=== PATIENT | female | born 1945 ===

== ENCOUNTER 2017-04-06 08:44 | Emergency (ER) | payer MEDICARE ==
[2017-04-06 08:44] VITALS: BMI 34.9
[2017-04-06 08:54] VITALS: O2SAT 99
[2017-04-06] MEDS ORDERED: Promethazine DM 12.5 mg-30 mg/10 ml Syrup PO ONE (10:00)
[2017-04-06] MEDS ORDERED: Promethazine 6.25 MG/5 ML CUP ONE (10:06)
--- NOTE | 2017-04-06 10:08 | ED PDOC ---
HPI: General Adult Time Seen by Provider: 04/06/17 09:05 Chief Complaint (Nursing): Cough, Cold, Congestion Chief Complaint (Provider): Cough, Cold, Congestion History Per: Patient History/Exam Limitations: no limitations Current Symptoms Are (Timing): Still Present Additional Complaint(s): 71 y/o female presents to the ED complaining of cough and congestion x 3 days. Denies any further medical complaints. PMD: Piotr Awad MD Past Medical History Reviewed: Historical Data, Nursing Documentation, Vital Signs Vital Signs: Last Vital Signs Temp 99.7 F H 04/06/17 08:54 Pulse 69 04/06/17 08:54 Resp BP 155/52 H 04/06/17 08:54 Pulse Ox 99 04/06/17 10:11 - Medical History PMH: Arthritis, HTN, Hypercholesterolemia - Surgical History Other surgeries: Tubal Ligation, Heel spur - Family History Family History: States: Unknown Family Hx - Social History Current smoker - smoking cessation education provided: No Alcohol: None Drugs: Denies - Home Medications Home Medications: Ambulatory Orders Medication Instructions Recorded Ciprofloxacin/Dexamethasone 4 drop BID #1 bottle 01/18/17 [Ciprodex 0.3%-0.1% 7.5 Ml] Levofloxacin [Levaquin] 500 mg PO DAILY #7 tablet 01/18/17 Metoclopramide HCl [Reglan] 5 mg PO TID PRN #10 tablet 01/18/17 Promethazine DM [Phenergan DM 10 ml PO TID PRN #120 ml 04/06/17 Syrup] - Allergies Allergies/Adverse Reactions: Allergies Allergy/AdvReac Type Severity Reaction Status Date / Time Penicillins Allergy Mild RASH Verified 01/18/17 10:58 Review of Systems ROS Statement: Except As Marked, All Systems Reviewed And Found Negative (As per HPI, otherwise negative) ENT: Positive for: Nose Congestion Respiratory: Positive for: Cough Physical Exam - Reviewed Nursing Documentation Reviewed: Yes Vital Signs Reviewed: Yes - Physical Exam Appears: Positive for: Well, Non-toxic, No Acute Distress Head Exam: Positive for: ATRAUMATIC, NORMAL INSPECTION, NORMOCEPHALIC Skin: Positive for: Normal Color, Warm, DRY Eye Exam: Positive for: EOMI, Normal appearance, PERRL ENT: Positive for: Normal ENT Inspection, Pharyngeal Erythema (mild pharyngeal erythema) Neck: Positive for: Normal, Painless ROM, Supple Cardiovascular/Chest: Positive for: Regular Rate, Rhythm. Negative for: Murmur Respiratory: Positive for: Normal Breath Sounds. Negative for: Accessory Muscle Use, Respiratory Distress Gastrointestinal/Abdominal: Positive for: Normal Exam Back: Positive for: Normal Inspection Extremity: Positive for: Normal ROM. Negative for: Deformity Neurologic/Psych: Positive for: Alert, Oriented (x3) - ECG O2 Sat by Pulse Oximetry: 99 (RA) Pulse Ox Interpretation: Normal - Radiology X-Ray: Viewed By Me X-Ray Interpretation: No Acute Disease Medical Decision Making Medical Decision Making: Time: 09:38 Plan: Chest x-ray Promethazine DM 10ml PO Influenza A B Scribe Attestation: Documented by Diane Hartman acting as a scribe for Adela Sullivan MD. Scribe Attestation: All medical record entries made by the Scribe were at my direction and personally dictated by me. I have reviewed the chart and agree that the record accurately reflects my personal performance of the history, physical exam, medical decision making, and the department course for this patient. I have also personally directed, reviewed, and agree with the discharge instructions and disposition. Disposition - Clinical Impression Clinical Impression: URI (upper respiratory infection) - Patient ED Disposition Is Patient to be Admitted: No Doctor Will See Patient In The: Office Counseled Patient/Family Regarding: Diagnosis, Need For Followup, Rx Given - Disposition Disposition: Routine/Home Disposition Time: 10:22 Condition: STABLE Prescriptions: Promethazine DM [Phenergan DM Syrup] 10 ml PO TID PRN #120 ml PRN Reason: Cough Instructions: Upper Respiratory Infection (ED) Forms: [email or web address] (Georgian) Print Language: EAST TIMORESE - POA Present On Arrival: None
[2017-04-06 10:33] VITALS: BP 135/81; PULSE 75; RESP 14; TEMP 98.2
--- NOTE | 2017-04-06 11:00 | RAD ---
HISTORY: coughx 2 days, chest tightness COMPARISON: Chest radiograph dated 05/19/2013. TECHNIQUE: Chest PA and lateral FINDINGS: LUNGS: No active pulmonary disease. PLEURA: No significant pleural effusion identified. No pneumothorax apparent. CARDIOVASCULAR: Atherosclerotic aortic calcifications. Cardiomediastinal silhouette within normal limits. OSSEOUS STRUCTURES: Unchanged. VISUALIZED UPPER ABDOMEN: Normal. OTHER FINDINGS: None. IMPRESSION: No active disease.
== END 2017-04-06 10:30 | disposition home or self-care (01) ==
LOC: H.ER 08:44
DX: J06.9 Acute upper respiratory infection, unspecified (principal); E78.00 Pure hypercholesterolemia, unspecified; I10 Essential (primary) hypertension; Z88.0 Allergy status to penicillin

== ENCOUNTER 2018-03-18 11:59 | Emergency (ER) | payer MEDICARE ==
[2018-03-18 11:59] VITALS: BMI 34.9
[2018-03-18 12:04] VITALS: O2SAT 99
[2018-03-18] MEDS ORDERED: Tdap Vaccine 0.5 ml Vial (10-64 yrs) IM ONE ×2 (12:20→12:34)
--- NOTE | 2018-03-18 13:02 | CT ---
Date of service: 03/18/2018 PROCEDURE: CT HEAD WITHOUT CONTRAST. HISTORY: trauma COMPARISON: 01/18/2017 TECHNIQUE: Axial computed tomography images were obtained through the head/brain without intravenous contrast. Radiation dose: Total exam DLP = 817.7 mGy-cm. This CT exam was performed using one or more of the following dose reduction techniques: Automated exposure control, adjustment of the mA and/or kV according to patient size, and/or use of iterative reconstruction technique. FINDINGS: HEMORRHAGE: No intracranial hemorrhage. BRAIN: No mass effect or edema. Cerebral atrophy and chronic appearing microvascular ischemic changes-similar VENTRICLES: Unremarkable. No hydrocephalus. CALVARIUM: Unremarkable. PARANASAL SINUSES: The prior left sphenoid sinus flat retention cyst and/or fluid level is much smaller in size on this exam. Tiny residual fluid level is favored. MASTOID AIR CELLS: Unremarkable as visualized. No inflammatory changes. OTHER FINDINGS: There is right frontal and periorbital scalp soft tissue swelling and hematoma suggested. IMPRESSION: Interval right frontal/periorbital scalp soft tissue swelling and hematoma suggested. No calvarial fracture. No intracranial hemorrhage or mass effect seen. Prior chronic cerebral atrophy and chronic appearing microvascular changes noted. Interval smaller left sphenoid sinus retention cyst and/or smaller air-fluid levels noted
--- NOTE | 2018-03-18 13:06 | ED PDOC ---
HPI: Trauma/Fall - HPI Time Seen by Provider: 03/18/18 12:17 Chief Complaint (Nursing): Trauma Chief Complaint (Provider): Trauma History Per: Patient History/Exam Limitations: no limitations Onset/Duration Of Symptoms: Mins (just prior to arrival) Injury Occurred (Timing): Just Before Arrival Location Of Injury: Right: Face, Wrist, Left: Neck Severity: Moderate Associated Symptoms: denies: LOC Additional Complaint(s): 72 year old female with a past medical history of hypertension and arthritis is brought into the ED by EMS status post fall that occurred just prior to arrival. Patient states that earlier today, she was at a supermarket, pushing her shopping cart. When she attempted to go over a curb, she put her cart on its back 2 wheels, lost her balance and fell striking the right side of her face, injuring her right wrist and the left side of her neck. Patient denies loss of consciousness, numbness, tingling, chest pain, abdominal pain, and weakness. Tetanus not up to date. PMD: Mariano Marsh MD - Fall Fall:Prior To Injury: Lost Balance Past Medical History Reviewed: Historical Data, Nursing Documentation, Vital Signs Vital Signs: Last Vital Signs Temp 98 F 03/18/18 12:03 Pulse 67 03/18/18 12:03 Resp 20 03/18/18 12:03 BP 174/78 H 03/18/18 12:03 Pulse Ox 99 03/18/18 12:03 BENSON report viewed?: Yes - Medical History PMH: Arthritis, HTN, Hypercholesterolemia - Surgical History Other surgeries: tubal ligation - Family History Family History: States: No Known Family Hx - Social History Current smoker - smoking cessation education provided: No Alcohol: None Drugs: Denies - Immunization History Hx Tetanus Toxoid Vaccination: No - Home Medications Home Medications: Ambulatory Orders Medication Instructions Recorded Promethazine DM [Phenergan DM 10 ml PO TID PRN #120 ml 04/06/17 Syrup] Metoprolol Tartrate [Lopressor] 04/07/17 - Allergies Allergies/Adverse Reactions: Allergies Allergy/AdvReac Type Severity Reaction Status Date / Time Penicillins Allergy Mild RASH Verified 03/18/18 12:16 Review of Systems ROS Statement: Except As Marked, All Systems Reviewed And Found Negative ENT: Positive for: Other (right side face injury) Musculoskeletal: Positive for: Neck Pain (left side neck pain), Other (right wrist pain) Physical Exam - Reviewed Nursing Documentation Reviewed: Yes Vital Signs Reviewed: Yes - Physical Exam Appears: Positive for: Well, Non-toxic, No Acute Distress Head Exam: Positive for: NORMOCEPHALIC. Negative for: ATRAUMATIC (right zygo matic area: circular superficial abrasion without laceration.) Skin: Positive for: Normal Color, Warm, Dry Eye Exam: Positive for: Normal appearance, EOMI, PERRL ENT: Positive for: Normal ENT Inspection Neck: Negative for: Normal (left sided paracervical muscle tenderness with no midline tenderness.) Cardiovascular/Chest: Positive for: Regular Rate, Rhythm Respiratory: Positive for: Normal Breath Sounds. Negative for: Respiratory Distress Pulses-Radial (L): 2+ Pulses-Radial (R): 2+ Gastrointestinal/Abdominal: Positive for: Normal Exam, Soft. Negative for: Tenderness Back: Positive for: Normal Inspection. Negative for: L CVA Tenderness, R CVA Tenderness, Vertebral Tenderness (no vertebral tenderness throughout entire spine) Extremity: Positive for: Normal ROM (able to actively move all fingers or right hand), Tenderness (mild tenderness to dorsum of right wrist). Negative for: Deformity (deformity of right wrist), Swelling (of right wrist) Neurologic/Psych: Positive for: Alert, Oriented (3x), Gait (steady and unassisted) - ECG O2 Sat by Pulse Oximetry: 99 (RA) Pulse Ox Interpretation: Normal - Radiology X-Ray: Viewed By Me, Read By Radiologist (see MDM note) - CT Scan/US CT maxillofacial Other Rad Studies (CT/US): Read By Radiologist, Radiology Report Reviewed (see MDM note) CT cervical spine Other Rad Studies (CT/US): Read By Radiologist, Radiology Report Reviewed (see MDM note) CT head Other Rad Studies (CT/US): Read By Radiologist, Radiology Report Reviewed (see MDM note) Medical Decision Making Medical Decision Makin:17 Initial impression: 72 year old female with multiple injuries status post fall. Initial plan: -- CT cervical spine w/o contrast -- CT head w/o contrast -- CT maxillofacial w/o contrast -- XRay wrist right 3 views -- adacel (10-64 yrs) 0.5 ml IM -- reevaluation 12:26 XRay wrist right read and reviewed by radiologist IMPRESSION: No acute displaced fracture or dislocation. 12:59 CT head read and reviewed by radiologist FINDINGS: HEMORRHAGE: No intracranial hemorrhage. BRAIN: No mass effect or edema. Cerebral atrophy and chronic appearing microvascular ischemic changes-similar VENTRICLES: Unremarkable. No hydrocephalus. CALVARIUM: Unremarkable. PARANASAL SINUSES: The prior left sphenoid sinus flat retention cyst and/or fluid level is much smaller in size on this exam. Tiny residual fluid level is favored. MASTOID AIR CELLS: Unremarkable as visualized. No inflammatory changes. OTHER FINDINGS: There is right frontal and periorbital scalp soft tissue swelling and hematoma suggested. IMPRESSION: Interval right frontal/periorbital scalp soft tissue swelling and hematoma suggested. No calvarial fracture. No intracranial hemorrhage or mass effect seen. Prior chronic cerebral atrophy and chronic appearing microvascular changes noted. Interval smaller left sphenoid sinus retention cyst and/or smaller air-fluid levels noted 13:06 CT maxillofacial read and reviewed by radiologist FINDINGS: NASAL BONES: Unremarkable. ORBITS: Orbital vera intact and globe and retrobulbar structures intact. Right periorbital soft tissue swelling continues cephalad with right frontal scalp soft tissue swelling. PARANASAL SINUSES/ MASTOIDS: Smaller left sphenoid sinus fluid level (compared to prior CT head without contrast 01/18/2017). MAXILLA: Unremarkable. MANDIBLE/ TEMPOROMANDIBULAR JOINTS: Unremarkable. SKULL BASE: Unremarkable. TEMPORAL BONES: Middle ears and mastoid grossly unremarkable. OTHER FINDINGS: Rounded soft tissue densities within each external auditory canal likely relates to cerumen debris IMPRESSION: Orbital vera intact and globe and retrobulbar structures intact. Right periorbital soft tissue swelling continues cephalad with right frontal scalp soft tissue swelling. No facial fractures suggested. 15:04 CT cervical spine read and reviewed by radiologist Radiation dose: Total exam DLP = 341.83 mGy-cm. This CT exam was performed using one or more of the following dose reduction techniques: Automated exposure control, adjustment of the mA and/or kV according to patient size, and/or use of iterative reconstruction technique. FINDINGS: VERTEBRAE: There is normal alignment of the cervical vertebral bodies. There is normal cervical lordosis. There is no acute fracture or spondylolisthesis. The craniocervical junction is normal. There is mild degenerative osteoarthrosis at the atlantoaxial joint. DISCS/SPINAL CANAL/NEURAL FORAMINA: There is mild multilevel degenerative disc disease, worse at C5-6 with a broad- based central disc protrusion which indents the ventral thecal sac with mild spinal canal stenosis. Mild bilateral facet arthropathy contribute to mild left neural foraminal narrowing. PARASPINAL SOFT TISSUES: No prevertebral soft tissue thickening. The paraspinous soft tissues are normal. There is ossification of the nuchal ligament at C4-5 and T1. There is focal interspinous ligament ossification at T7. OTHER FINDINGS: None. IMPRESSION: No acute fracture or traumatic anterior listhesis. Broad-based central disc protrusion at C5-6 which indents the ventral thecal sac with mild spinal canal stenosis. 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 Scribe Attestation: Documented by Isela Haider, acting as a scribe for Bryant Aranda Provider Scribe Attestation: All medical record entries made by the Scribe were at my direction and personally dictated by me. I have reviewed the chart and agree that the record accurately reflects my personal performance of the history, physical exam, medical decision making, and the department course for this patient. I have also personally directed, reviewed, and agree with the discharge instructions and disposition. Disposition - Clinical Impression Clinical Impression: Wrist sprain, Head injury, Facial contusion, Abrasion - Patient ED Disposition Is Patient to be Admitted: No - Disposition Referrals: Mariano Marsh [Family Provider] - Disposition: Routine/Home Disposition Time: 15:09 Condition: STABLE Additional Instructions: FOLLOW UP WITH PMD FOR FURTHER EVALUATION RETURN TO ED IMMEDIATELY IF SYMPTOMS WORSEN AMADO DAVIS, thank you for letting us take care of you today. Your provider was Jw Nelson MD and you were treated for FALL. The emergency medical care you received today was directed at your acute symptoms. If you were prescribed any medication, please fill it and take as directed. It may take several days for your symptoms to resolve. Return to the Emergency Department if your symptoms worsen, do not improve, or if you have any other problems. Please contact your doctor or call one of the physicians/clinics you have been referred to that are listed on the Patient Visit Information form that is included in your discharge packet. Bring any paperwork you were given at discharge with you along with any medications you are taking to your follow up visit. Our treatment cannot replace ongoing medical care by a primary care provider outside of the emergency department. Thank you for allowing the [facility] team to be part of your care today. If you had an X-Ray or CT scan: A Radiologist will review the ED reading if any change in treatment is needed we will contact you. If you had a blood, urine, or wound culture: It will take several days for the results, if any change in treatment is needed we will contact you. If you had an STI test: It will take 48 hours for the results. Please call after 1 week if you have not heard back. Instructions: Wrist Sprain (DC), Closed Head Injury (DC), Skin Abrasions (DC) Forms: [employer] (Kinyarwanda) Print Language: URUGUAYAN
--- NOTE | 2018-03-18 13:10 | CT ---
Date of service: 03/18/2018 PROCEDURE: CT MAXILLOFACIAL BONES WITHOUT CONTRAST HISTORY: trauma COMPARISON: None available. TECHNIQUE: Contiguous axial CT images of the maxillofacial bones were obtained. Coronal and sagittal reformats were generated. Radiation dose: Total exam DLP = 721.31 mGy-cm. This CT exam was performed using one or more of the following dose reduction techniques: Automated exposure control, adjustment of the mA and/or kV according to patient size, and/or use of iterative reconstruction technique. FINDINGS: NASAL BONES: Unremarkable. ORBITS: Orbital vera intact and globe and retrobulbar structures intact. Right periorbital soft tissue swelling continues cephalad with right frontal scalp soft tissue swelling. PARANASAL SINUSES/ MASTOIDS: Smaller left sphenoid sinus fluid level (compared to prior CT head without contrast 01/18/2017). MAXILLA: Unremarkable. MANDIBLE/ TEMPOROMANDIBULAR JOINTS: Unremarkable. SKULL BASE: Unremarkable. TEMPORAL BONES: Middle ears and mastoid grossly unremarkable. OTHER FINDINGS: Rounded soft tissue densities within each external auditory canal likely relates to cerumen debris IMPRESSION: Orbital vera intact and globe and retrobulbar structures intact. Right periorbital soft tissue swelling continues cephalad with right frontal scalp soft tissue swelling. No facial fractures suggested. Other findings as above.
--- NOTE | 2018-03-18 14:01 | RAD ---
Date of service: 03/18/2018 PROCEDURE: Right Wrist Radiographs. HISTORY: trauma COMPARISON: None. FINDINGS: BONES: Bone alignment and mineralization are normal. There is no acute displaced fracture or bone destruction. JOINTS: Normal. No dislocation. SOFT TISSUES: Normal. OTHER FINDINGS: None. IMPRESSION: No acute displaced fracture or dislocation.
--- NOTE | 2018-03-18 15:08 | CT ---
Date of service: 03/18/2018 PROCEDURE: CT Cervical Spine without contrast HISTORY: trauma COMPARISON: None available. TECHNIQUE: Axial computed tomography images were obtained of the cervical spine without the use of intravenous contrast. Coronal and sagittal reformatted images were created and reviewed. Radiation dose: Total exam DLP = 341.83 mGy-cm. This CT exam was performed using one or more of the following dose reduction techniques: Automated exposure control, adjustment of the mA and/or kV according to patient size, and/or use of iterative reconstruction technique. FINDINGS: VERTEBRAE: There is normal alignment of the cervical vertebral bodies. There is normal cervical lordosis. There is no acute fracture or spondylolisthesis. The craniocervical junction is normal. There is mild degenerative osteoarthrosis at the atlantoaxial joint. DISCS/SPINAL CANAL/NEURAL FORAMINA: There is mild multilevel degenerative disc disease, worse at C5-6 with a broad-based central disc protrusion which indents the ventral thecal sac with mild spinal canal stenosis. Mild bilateral facet arthropathy contribute to mild left neural foraminal narrowing. PARASPINAL SOFT TISSUES: No prevertebral soft tissue thickening. The paraspinous soft tissues are normal. There is ossification of the nuchal ligament at C4-5 and T1. There is focal interspinous ligament ossification at T7. OTHER FINDINGS: None. IMPRESSION: No acute fracture or traumatic anterior listhesis. Broad-based central disc protrusion at C5-6 which indents the ventral thecal sac with mild spinal canal stenosis.
[2018-03-18 15:58] VITALS: BP 140/76; PULSE 68; RESP 18; TEMP 98.1
== END 2018-03-18 15:35 | disposition home or self-care (01) ==
LOC: H.ER 11:59
DX: S63.501A Unspecified sprain of right wrist, initial encounter (principal); S00.83XA Contusion of other part of head, initial encounter; S00.81XA Abrasion of other part of head, initial encounter; W18.39XA Other fall on same level, initial encounter; I10 Essential (primary) hypertension; Z88.0 Allergy status to penicillin; Z23 Encounter for immunization